=== PATIENT | female | born 1990 | race Caucasian/White ===

== ENCOUNTER 2017-03-05 08:39 | Day surgery (SDC) | payer OTHER ==
[2017-03-05 09:14] VITALS: BMI 24.0
[2017-03-05] MEDS ORDERED: Propofol 10 mg/ml Inj (20 ML) ONE (12:01)
[2017-03-05] MEDS ORDERED: Lactated Ringer's 500 ML IV SCH (12:15)
[2017-03-05 12:29] VITALS: TEMP 97.1
[2017-03-05 12:45] VITALS: RESP 14
[2017-03-05 14:16] VITALS: BP 107/77; PULSE 66; O2SAT 100
== END 2017-03-05 13:15 | disposition home or self-care (01) ==
LOC: C.ENDO 08:39
PROVIDERS: ATTEND Internal Medicine Gastroenterology
DX: K29.70 Gastritis, unspecified, without bleeding (principal); K20.9 Esophagitis, unspecified
CPT/HCPCS: 43239; 84703; 88305; 88312; 88313; 88342; J2704; J7120

== ENCOUNTER 2017-04-06 07:01 | Day surgery (SDC) | payer OTHER ==
[2017-04-06 07:24] VITALS: BMI 23.3
[2017-04-06 08:47] LABS: BASO % 0.4 % (0.0-2.0); EOS # 0.2 K/uL (0.0-0.7); EOS % 2.3 % (0.0-4.0); HEMOGLOBIN 11.7 g/dL (11.0-16.0); LYMPH # 3.5 K/uL (1.0-4.3); LYMPH % 35.2 % (20.0-40.0); MEAN CELL VOLUME 85.3 fL (81.0-99.0); MEAN CORPUSCULAR HEMOGLOBIN 27.8 pg (27.0-31.0); MEAN CORPUSCULAR HGB CONC 32.6 g/dL (33.0-37.0); MEAN PLATELET VOLUME 8.4 fL (7.2-11.7); MONO # 0.8 K/uL (0.0-0.8); MONO % 7.7 % (0.0-10.0); NEUT # 5.3 K/uL (1.8-7.0); NEUT % 54.4 % (50.0-75.0); NRBC % 0.1 % (0.0-2.0); RBC 4.19 Mil/uL (3.80-5.20); RED CELL DISTRIBUTION WIDTH 14.5 % (11.5-14.5); WHITE BLOOD COUNT 9.8 K/uL (4.8-10.8)
[2017-04-06 08:53] LABS: INR 1.1
[2017-04-06 09:02] LABS: ALBUMIN 3.9 g/dL (3.5-5.0)
[2017-04-06 09:05] LABS: ALB/GLOB RATIO 1.3 (1.0-2.1); AST/SGOT 21 U/L (14-36); GFR AFRICAN-AMERICAN > 60; GFR NON-AFRICAN AMERICAN > 60
[2017-04-06 09:06] LABS: ALT/SGPT 22 U/L (9-52); BLOOD UREA NITROGEN 15 mg/dL (7-17); CALCIUM 8.8 mg/dl (8.6-10.4)
[2017-04-06] MEDS ORDERED: Propofol 10 mg/ml Inj (20 ML) ONE ×3 (12:37→14:11)
--- NOTE | 2017-04-06 12:47 | CP.SDSHP ---
Same Day Surgery H & P - History Proposed Procedure: EGD/EUS Pre-Op Diagnosis: Submucosal lesion of stomach - Allergies Allergies: Allergies No Known Allergies Allergy (Verified 03/23/17 13:25) - Physical Exam General Appearance: nl Vital Signs: Vital Signs 04/06/17 08:02 Temperature 97.7 F Pulse Rate 65 Respiratory 12 Rate Blood Pressure 113/69 O2 Sat by Pulse 100 Oximetry Mental Status: Alert & Oriented x3 Neuro: WNL Heart: WNL Lungs: WNL GI: WNL - {Optional Preform as Required} Abdomen: WNL - Impression Impression: Submucosal lesion of stomach Pt. Evaluated Today:Candidate for Anesthesia & Procedure: Yes - Date & Time Date: 04/06/17 Time: 12:46 Short Stay Discharge - Short Stay Discharge Admitting Diagnosis/Reason for Visit: GASTRIC NODULE Disposition: HOME/ ROUTINE
[2017-04-06 14:41] VITALS: TEMP 97.8
[2017-04-06 15:50] VITALS: BP 110/70; PULSE 80; RESP 14; O2SAT 98
== END 2017-04-06 15:35 | disposition home or self-care (01) ==
LOC: C.ENDO 07:01
PROVIDERS: ATTEND Internal Medicine
DX: K29.60 Other gastritis without bleeding (principal); K31.89 Other diseases of stomach and duodenum; K44.9 Diaphragmatic hernia without obstruction or gangrene
CPT/HCPCS: 36415; 43239; 80053; 84703; 85025; 85610; 88305; J2704; J3010